=== PATIENT | female | born 1960 ===

== ENCOUNTER → 2017-03-29 | Day surgery (SDC) | payer BC ==
[~2017-03-29] VITALS: Ht 162.6 cm; Wt 64.5 kg
[2017-03-29] VITALS (10 sets, daily range): BP systolic 80–120; BP diastolic 54–83; PULSE 74–92; RESP 14–18; Ht 162.6 cm; Wt 64.5 kg
[~2017-03-29] MED LIST: ALBUTEROL 0.083% (NEB) 2.5 MG/3 ML AMP HHN PRN; BUPIVACAINE 0.5% (SDV) 30 ML INJ ONE; CEFAZOLIN 1 GM INJ ONE; DEXAMETHASONE 4 MG/ML 1 ML INJ ONE; DIPHENHYDRAMINE 50 MG INJ IV PRN; EPHEDrine SULFATE 50 MG/5 ML SYG IV PRN; FENTAnyl 50 MCG/ML VIAL IV PRN; FENTAnyl 50 MCG/ML VIAL ONE; GLYCOPYRROLATE 0.4 MG INJ ONE; HYDROmorphONE (0.2 MG/ML) 10ML SYG IV PRN; IPRATROPIUM (NEB) 0.5 MG/2.5 ML AMP HHN PRN; KETOROLAC 30 MG INJ ONE; LABETALOL HCL 20MG INJ IV PRN; LIDOCAINE 1% (STERILE-PAK) 30 ML INJ ONE; MEPERIDINE 25 MG INJ IV PRN; MIDAZOLAM 1 MG/ML 2 ML INJ IV PRN; MIDAZOLAM 1 MG/ML 2 ML INJ ONE; NEOSTIGMINE 3 MG/3 ML SYRINGE ONE; ONDANSETRON 4 MG INJ IV PRN; ONDANSETRON 4 MG INJ ONE; OXYCODONE/ACETAMINOPHEN (5/325) TAB PO PRN; POLYMYXIN/BACITRACIN 1L IRRIG ONE; PROPOFOL 20 ML ONE; ROCURONIUM 50 MG INJ ONE; ROPIVACAINE 0.5 % 30 ML VIAL ONE; TRIMETHOBENZAMIDE 100 MG/ML VIAL IM PRN; hydrALAzine 20 MG INJ IV PRN
--- NOTE | 2017-03-29 17:35 | HPN ---
Date/Time of Note Date/Time of Note DATE: 03/29/17 TIME: 17:35 Interval H&P Admission Note Pt. seen H&P reviewed: No system changes CRISTAL DUDLEY Mar 29, 2017 17:35
[2017-03-29] MEDS: HYDROmorphONE (0.2 MG/ML) 10ML SYG IV PRN ×2 (19:04→19:09)
--- NOTE | 2017-03-29 19:09 | OPPN ---
Date/Time of Note Date/Time of Note DATE: 03/29/17 TIME: 19:06 Operative Report Preoperative Diagnosis Right midshaft ulna fracture Postoperative Diagnosis Right midshaft ulna fracture Operation/Procedure Performed Open reduction internal fixation of Right midshaft ulna fracture Surgeon see signature line benefits assistant none Anesthesia: general, other Estimated blood loss: 0 - 10 ml's Transfusion Required none Specimen none Grafts/Implants none Complications none CRISTAL DUDLEY Mar 29, 2017 19:09
--- NOTE | 2017-03-29 21:54 | OPR ---
DATE OF OPERATION: 03/29/2017 SURGEON: Syed Bailey MD ANESTHESIA: General plus peripheral nerve block. PREOPERATIVE DIAGNOSIS: Right midshaft ulnar fracture. POSTOPERATIVE DIAGNOSIS: Right midshaft ulnar fracture. PROCEDURE: Open reduction, internal fixation of right midshaft ulna fracture. OPERATIVE FINDINGS: Right midshaft ulnar fracture. INDICATION FOR PROCEDURE: A 56-year-old female with injury to the right forearm. She was seen in the clinic and options were discussed. She would like to proceed with surgical intervention understanding the risks and benefits. DESCRIPTION OF PROCEDURE: The patient was seen in the preoperative area. All further questions were answered. Again, she gave informed consent understanding risks and benefits. The patient was brought to the operative suite and placed in supine position. A peripheral nerve block was performed at my request for perioperative anesthesia as well as postoperative pain relief. The patient was placed under general anesthesia and tourniquet placed on the right upper extremity. Ancef 2 g IV given and right upper extremity was prepped with ChloraPrep stick and draped in the usual sterile fashion. Esmarch bandage was used to exsanguinate the extremity and tourniquet inflated to 250 mmHg. An incision along the midshaft ulna was utilized through the ECU, FCU interval with sharp dissection carried down through skin and subcutaneous tissue. The ECU, FCU interval was visualized and was incised and the volar aspect of the midshaft ulna was elevated. The fracture was identified and was anatomically reduced and Accumed midshaft ulna plate was placed across the fracture site. Cortical and locking screws were placed in the proximal and distal segments and x-ray imaging showed appropriate hardware placement and bone alignment. Wound was copiously irrigated and the fascial layer was closed with 3-0 Monocryl. Skin closed with 4-0 nylon. Xeroform was placed over the wound followed by sterile gauze, Webril, and a short arm splint. Tourniquet was deflated after 39 minutes and the patient was awakened from anesthesia. She was taken to the recovery suite in stable condition and tolerated the procedure well without complications. SPECIMENS: None. ESTIMATED BLOOD LOSS: 5 cc. SPONGE, INSTRUMENT, NEEDLE COUNTS: Correct. TOURNIQUET TIME: Thirty nine minutes. CONDITION ON DISCHARGE: Stable. Dictated By: Syed Bailey MD /fnt/umac /Document#: [id number] MTDD
--- NOTE | 2017-03-30 15:25 | RADRPT ---
PROCEDURE: Intraoperative imaging of the right forearm with fluoroscopy. CLINICAL INDICATION: Right forearm pain. Intraoperative. TECHNIQUE: Four images of the right forearm were obtained in the operating room with an image inte nsifier. No radiologist was in attendance. Fluoroscopy time is 9 seconds. COMPARISON: No prior study is available for comparison. FINDINGS: Images demonstrate open reduction and internal fixation of the fracture of the right ulna with a alpesh te and multiple screws. Alignment is grossly satisfactory. IMPRESSION: 1. Intraoperative imaging of the right forearm. RPTAT: QQ .Nathan Rodgers MD, MD Date Time Electronically viewed and signed by .Nathan Rodgers MD, on 03/30/2017 15:25 .R/
== END | disposition home or self-care (01) ==
LOC: SDS 15:22
PROVIDERS: ATTEND Orthopaedic Surgery Hand Surgery
DX: S52.201A Unspecified fracture of shaft of right ulna, initial encounter for closed fracture (principal); F41.9 Anxiety disorder, unspecified; F32.9 Major depressive disorder, single episode, unspecified; R06.01 Orthopnea; V49.9XXA Car occupant (driver) (passenger) injured in unspecified traffic accident, initial encounter
CPT/HCPCS: 84703; J0690; J1100; J1170; J1885; J2175; J2250; J2405; J2710; J2795; J3010